=== PATIENT | female | born 1935 ===

== ENCOUNTER → 2024-09-25 10:10 | Outpatient (REF) | payer MEDICARE, BC, SELFPAY ==
[2024-09-25 10:50] LABS: % Basophils 0.6 % (0-2); % Eosinophils 2.8 % (0-6); % Immature Granulocytes 0.1 % (0-0.5); % Lymphocytes 21.2 % (20.5-51.1); % Monocytes 7.9 % (1.7-9.3); % Neutrophils 67.4 % (42.2-75.2); Absolute Eosinophils 0.2 10^3/uL (0-0.7); Absolute Lymphocytes 1.5 10^3/uL (1.2-3.4); Absolute Monocytes 0.6 10^3/uL (0.1-0.6); Absolute Neutrophils 4.8 10^3/uL (1.4-6.5); Hematocrit 39.5 % (37.0-47.0); Hemoglobin 12.2 g/dL (12.0-16.0); Mean Corp Hgb Conc. 30.9 g/dL (33.0-37.0); Mean Corpuscular Hgb 25.9 pg (27.0-31.0); Mean Corpuscular Volume 83.9 fL (81.0-99.0); Platelet Count 296 10^3/uL (130-400); Red Blood Cell Count 4.71 10^6/uL (4.20-5.40); Red Cell Dist. Width 23.3 % (11.5-14.5); White Blood Cell Count 7.1 10^3/uL (4.8-10.8)
[2024-09-25 12:21] LABS: Iron 159 ug/dl (37-170)
[2024-09-25 12:31] LABS: Percent Saturation 47 % (20-50); Total Iron Binding Capacity 335 ug/dl (265-497)
[2024-09-25 12:59] LABS: Ferritin 31.9 ng/ml (11.1-264.0)
== END ==
LOC: OIDL 10:10
PROVIDERS: ATTENDING PHYSICIAN Nurse Practitioner Acute Care
DX: E61.1 Iron deficiency (principal); D69.6 Thrombocytopenia, unspecified
CPT/HCPCS: 82728; 83540; 83550; 85025